=== PATIENT | female | born 1945 | race Caucasian/White ===

== ENCOUNTER 2019-07-11 13:55 | Inpatient (IN) | payer OTHER ==
[~2019-07-11] VITALS: Ht 149.9 cm; Wt 51.7 kg
[2019-07-11 14:00] VITALS: BP 140/62
--- NOTE | 2019-07-11 14:04 | NUR ---
PTS SON LEE RAMIREZNANDEZ
--- NOTE | 2019-07-11 14:07 | NUR ---
pt ambulated to bed 11, steady gait
--- NOTE | 2019-07-11 14:08 | NUR ---
pt placed on pulse ox and 3 lead ecg
--- NOTE | 2019-07-11 14:12 | NUR ---
pt unable to provide urine at this time.
--- NOTE | 2019-07-11 14:18 | NUR ---
Dr. Ball evaluating pt at bedside.
--- NOTE | 2019-07-11 14:19 | NUR ---
Labs drawn bedside via LAC #[id number]
--- NOTE | 2019-07-11 14:20 | NUR ---
74/F WENT TO LAB YESTERDAY, AND WAS EMAILED TODAY WITH RESULTS ABNORMAL HGB- 3.1, IRON-11. PT HAS BEEN FEELING GENERALIZED WEAKNESS / FATIGUE X 1 MONTH. NO DIZZINESS. STATES MILD SOB. BLE EDEMA X 1 MONTH. AOX4. AMB W/ SLOW STEADY GAIT. PMH- DENIES NKDA
[2019-07-11] MEDS ORDERED: NACL 0.9% 500 ML IV SCH (14:23)
[2019-07-11] MEDS ORDERED: FAMOTIDINE 20 MG/2 ML VIAL IVP ONE (14:25)
[2019-07-11] MEDS ORDERED: PANTOPRAZOLE 40 MG INJ VIAL IVP ONE (14:25)
[2019-07-11] MEDS ORDERED: ONDANSETRON 4 MG/2 ML VIAL IVP ONE (14:25)
--- NOTE | 2019-07-11 14:26 | NUR ---
PER SON, PT DOES NOT HAVE ANY HOME MEDS.
--- NOTE | 2019-07-11 14:44 | NUR ---
BLOOD DRAW WALKED TO LAB BY JAMIE GAINES
--- NOTE | 2019-07-11 14:44 | NUR ---
Johnny gonzalez in [facility] - 07/11/19 at 1446 by [facility] BLOOD DRAW WALKED TO LAB BY JAMIE GAINES
--- NOTE | 2019-07-11 14:46 | NUR ---
REPORT TO JAMIE DAS
--- NOTE | 2019-07-11 14:46 | NUR ---
Received report from JAMIE Baptiste for continuation of care.
--- NOTE | 2019-07-11 15:06 | NUR ---
XRAY at Bedside.
--- NOTE | 2019-07-11 15:08 | NUR ---
Pt O2 Sat 92% , pt put on NC 2L for comfort.
[2019-07-11 15:17] LABS: BASOPHILS # (AUTO) 0.1 K/uL (0.00-0.22); BASOPHILS % (AUTO) 1.8 % (0.0-2.0); EOSINOPHILS % (AUTO) 0.6 % (0.0-4.0); LYMPHOCYTES # (AUTO) 1.6 K/uL (2.5-16.5); LYMPHOCYTES % (AUTO) 25.6 % (20.5-51.1); MEAN CORPUSCULAR HEMOGLOBIN 16 pg (27-31); MEAN CORPUSCULAR HGB CONC 27 g/dL (33-37); MEAN CORPUSCULAR VOLUME 57.7 fL (80-94); MONOCYTES # (AUTO) 0.7 K/uL (0.8-1.0); MONOCYTES % (AUTO) 11.7 % (1.7-9.3); NEUTROPHILS # (AUTO) 3.7 K/uL (1.8-7.7); NEUTROPHILS % (AUTO) 60.3 % (42.2-75.2); PLATELET COUNT (AUTO) 312 K/uL (140-450); RED BLOOD CELL COUNT(AUTO) 2.01 MIL/uL (4.20-5.40); RED CELL DISTRIBUTION WIDTH 22.3 % (11.6-13.7); WHITE BLOOD COUNT (AUTO) 6.1 K/uL (4.8-10.8)
[2019-07-11 15:22] LABS: HEMATOCRIT 11.6 % (36-48); HEMOGLOBIN 3.2 g/dL (12.0-16.0)
[2019-07-11 15:38] LABS: ALBUMIN 3.9 g/dL (3.4-5.0); ANION GAP 17.6 (8-16); ASPARTATE AMINOTRANSFERASE 13 U/L (15-37); CARBON DIOXIDE 20.2 mmol/L (21-32); CHLORIDE 106 mmol/L (98-107); CREATININE 1.2 mg/dL (0.6-1.3); GLUCOSE 115 mg/dL (74-106); POTASSIUM 3.8 mmol/L (3.5-5.1); SODIUM SERUM 140 mmol/L (136-145); TOTAL BILIRUBIN 0.7 mg/dL (0.0-1.0); UREA NITROGEN, BLOOD 19 mg/dL (7-18)
--- NOTE | 2019-07-11 15:38 | NUR ---
PT AMBULATED TO BATHROOM WITH ASSISTANCE, STEADY GAIT.
[2019-07-11 15:39] LABS: PROTHROMBIN TIME 11.9 secs (10.8-13.4)
--- NOTE | 2019-07-11 15:40 | NUR ---
PT AMBULATED TO RESTROOM WITH ASSISTANCE OF MYSELF AND JAMIE BARRERA. PT BECAME VERY TIRED AND SOB AFTER WALKING FROM BED 11 TO RESTROOM ACROSS THE TIERNEY.
[2019-07-11 16:40] LABS: BILIRUBIN,URINE NEGATIVE (NEGATIVE); BLOOD, URINE NEGATIVE (NEGATIVE); COLOR,URINE ORANGE (YELLOW); LEUKOCYTE ESTERASE ,URINE 1+ (NEGATIVE); NITRITE, URINE NEGATIVE (NEGATIVE); PH,URINE 5.5 (5.0-9.0); UGLUCOSE NEGATIVE (NEGATIVE)
[2019-07-11] MEDS ORDERED: NACL 0.9% 1,000 ML IV SCH (16:44)
[2019-07-11] MEDS ORDERED: HYDROcodone/APAP 7.5/325 MG 1 TAB PO PRN (16:45)
[2019-07-11] MEDS ORDERED: DOCUSATE SODIUM 100 MG GELCAP PO PRN (16:45)
[2019-07-11] MEDS ORDERED: ONDANSETRON 4 MG/2 ML VIAL IM/IVP PRN (16:45)
[2019-07-11] MEDS ORDERED: ACETAMINOPHEN 325 MG TAB PO PRN (16:45)
[2019-07-11] MEDS ORDERED: MORPHINE SULFATE 2 MG/ML SYR IVP PRN (16:45)
[2019-07-11 16:51] LABS: APPEARANCE,URINE HAZY (CLEAR)
[2019-07-11 17:08] LABS: RBC,URINE NONE SEEN /HPF (0-5)
--- NOTE | 2019-07-11 17:30 | NUR ---
PT 02 SAT DECREASED TO 92% , PUT PT TO 4L NC TO ELEVATE O2 SAT.
[2019-07-11 18:10] LABS: PHOSPHORUS 3.9 mg/dL (2.5-4.9); THYROID STIMULATING HORMONE 1.56 uIU/mL (0.34-3.74)
[2019-07-11 18:16] LABS: BARBITURATE, URINE NEGATIVE ng/ml (NEG <=200); BENZODIAZEPINE, URINE NEGATIVE ng/mL (NEG <=200); CANNABINOID, URINE NEGATIVE ng/mL (NEG <=50); COCAINE, URINE NEGATIVE ng/mL (NEG <=300); OPIATE, URINE NEGATIVE ng/mL (NEG <=2000); PHENCYCLIDINE SCREEN,URINE NEGATIVE ng/mL (NEG <=25)
[2019-07-11 18:18] LABS: MAGNESIUM 2.7 mg/dL (1.8-2.4); URIC ACID 5.9 mg/dL (2.6-7.2)
[2019-07-11] MEDS ORDERED: BOWEL EVACUANT DRINK 4,000 ML PDS PO SCH (19:00)
--- NOTE | 2019-07-11 19:00 | NUR ---
RECEIVED FROM ED PATIENT WHEELED VIA GURNEY, PT VERY WEAK, ABLE TO WALK BUT W/ 2 MAX ASSIST. AAO X 4, INDONESIAN SPEAKING ONLY; W/ IV ON THE LEFT AC G 20, PATENT AND INTACT; PLACED ON LOW BED. ORIENTED TO UNIT; MRSA SWAB DONE.CALL LIGHT W/IN EASY REACH.WILL CONTINUE TO MONITOR
--- NOTE | 2019-07-11 19:09 | NUR ---
Patient will be admitted to care of Dr. Hall. Admited to Telemetry. Will go to room 107B. Belongings list completed. Report to JAMIE Saunders.
[2019-07-11] MEDS ORDERED: SODIUM FERRIC GLUCONATE 125 MG in NACL 0.9% 100 ML IV SCH (20:00)
--- NOTE | 2019-07-11 20:15 | NUR ---
INFORMED JESSENIA INVESTIGATOR WELFARE, ON THE LACKING Y TUBING SHE SAID SHE WILL BRING IT FOR BLOOD
[2019-07-11] MEDS: DEXT 5% /NACL 0.9% 1,000 ML IV SCH (20:22)
--- NOTE | 2019-07-11 20:22 | NUR ---
STARTED THE IVF INFUSED IT FOR TWO HOURS , LEFT 800 ML, STOPPED BECAUSE I HAD TO START THE BLOOD AT 2210
--- NOTE | 2019-07-11 20:23 | NUR ---
INFORMED DR. THORNE THAT PT HAS GOLYTELY AT 1900 ONCE, AND THE FERLICCIT IV, SAID TO GIVE IT AFTER THE BLOOD TRANSFUSION( AFTER THE 2 UNITS)
--- NOTE | 2019-07-11 20:45 | NUR ---
PT'S USD LE ARTERIAL AND VENOUS ONGOING
--- NOTE | 2019-07-11 21:48 | NUR ---
BLOOD TRANSFUSION SIGNED USING [facility] VOTATOR MACHINE OPERATOR [id number] JUNE
--- NOTE | 2019-07-11 22:10 | NUR ---
STARTED BLOOD TRANSFUSION . VERIFIED W/ NURSE, ARTI, BLOOD AND ID BAND. WILL MONITOR FOR SIGNS AND SYMPTOMS OF ADVERSE REACTIONS
--- NOTE | 2019-07-11 22:25 | NUR ---
1ST 15 MINS NO BLOOD TRANSFUSION REACTIONS, VITAL SIGNS ARE: 123/52; 80 HR; 16; 97.7; 98% O2; 0/10 PAIN
--- NOTE | 2019-07-11 22:49 | NUR ---
VERIFIED W/ DR. THORNE HOW MANY UNITS OF PRBC AM I GIVING? BECAUSE THERE'S NOTHING IN THE ORDER THAT SAYS HOW MANY RBC. HE SAID THEY ORDERED, 2 UNITS. WILL GIVE 2 UNITS
[2019-07-12] VITALS: BP 118/56
[2019-07-12 04:00] VITALS: BP 152/71
--- NOTE | 2019-07-12 04:05 | NUR ---
PT HAS FINISHED THE 2ND UNIT OF PRBC; AND PT HAS JUST RESTED. INFORMED DR. THORNE, THAT WHEN SHE WAKES UP WILL START THE GOLYTELY
[2019-07-12] MEDS: DEXT 5% /NACL 0.9% 1,000 ML IV SCH ×2 (04:10→04:50)
[2019-07-12] MEDS ORDERED: BOWEL EVACUANT DRINK 4,000 ML PDS ONE (05:03)
[2019-07-12] MEDS ORDERED: SODIUM FERRIC GLUCONATE 12.5 MG/ML AMP IV ONE (05:03)
--- NOTE | 2019-07-12 05:08 | NUR ---
2 AMPULES OF 62. 5 ML MG EACH 9TOTAL OF 125 MG) WAS MIXED W/ NS AT 100 ML . AND STARTED
[2019-07-12 06:07] LABS: FOLIC ACID 17.6 ng/mL (>3.0)
[2019-07-12 07:07] LABS: FOLIC ACID 17.6 ng/mL (>3.0)
[2019-07-12 07:09] LABS: BASOPHILS # (AUTO) 0.1 K/uL (0.00-0.22); BASOPHILS % (AUTO) 2.7 % (0.0-2.0); EOSINOPHILS % (AUTO) 1.2 % (0.0-4.0); LYMPHOCYTES % (AUTO) 26.7 % (20.5-51.1); MEAN CORPUSCULAR HEMOGLOBIN 21 pg (27-31); MEAN CORPUSCULAR HGB CONC 30 g/dL (33-37); MONOCYTES # (AUTO) 0.4 K/uL (0.8-1.0); MONOCYTES % (AUTO) 10.8 % (1.7-9.3); NEUTROPHILS # (AUTO) 2.2 K/uL (1.8-7.7); NEUTROPHILS % (AUTO) 58.6 % (42.2-75.2); PLATELET COUNT (AUTO) 215 K/uL (140-450); RED BLOOD CELL COUNT(AUTO) 2.76 MIL/uL (4.20-5.40); RED CELL DISTRIBUTION WIDTH 29.8 % (11.6-13.7); WHITE BLOOD COUNT (AUTO) 3.7 K/uL (4.8-10.8)
[2019-07-12 07:11] LABS: ANION GAP 15.8 (8-16); CHLORIDE 111 mmol/L (98-107); GLUCOSE 92 mg/dL (74-106); POTASSIUM 4.8 mmol/L (3.5-5.1); SODIUM SERUM 144 mmol/L (136-145); UREA NITROGEN, BLOOD 15 mg/dL (7-18)
[2019-07-12 07:13] LABS: HEMATOCRIT 19.1 % (36-48); HEMOGLOBIN 5.8 g/dL (12.0-16.0)
[2019-07-12 07:18] LABS: MAGNESIUM 2.4 mg/dL (1.8-2.4); PHOSPHORUS 3.7 mg/dL (2.5-4.9)
[2019-07-12 07:40] LABS: CHOL/HDL RATIO 2.4 (1-4.5)
--- NOTE | 2019-07-12 07:47 | NUR ---
RECEIVED REPORT FROM CALIBRATION ENGINEER RN FOR CONTINUITY OF CARE. PT IS AAOX3, COOPERATIVE AND ABLE TO MAKE NEEDS KNOW. PT IS SAMI SPEAKING. I AM ABLE TO COMMUNICATE WELL WITH HER. PT IS ON 2L O2 VIA NC. SATING WELL AT 96%. PT SKIN IS INTACT. PT AMBULATORY BUT WITH ASSIST DUE TO WEAKNESS FROM SEVERE ANEMIA. INSTRUCTED PT TO USE CALL LIGHT IF SHE NEEDS TO GET OUT OF BED. PT VERBALIZED UNDERSTANDING. PT HAS L AC 20G INFUSING D5NS @ 100ML/HR. IV INTACT AND PATENT. DISCUSSED POC WITH PT AND PT VERBALIZED UNDERSTANDING. SAFETY MEASURES IN PLACE. BED IN LOW POSITION, CALL LIGHT WITHIN REACH. WILL ROUND FREQUENTLY ON PT THROUGHOUT THE SHIFT.
[2019-07-12 08:00] VITALS: BP 156/73
[2019-07-12] MEDS: FUROSEMIDE 40 MG/4 ML VIAL IVP SCH (08:51)
[2019-07-12] MEDS: PANTOPRAZOLE 40 MG INJ VIAL IVP SCH (08:51)
--- NOTE | 2019-07-12 09:05 | NUR ---
ADMINISTERED MORNING MEDS. PT TOLERATED WELL. ALL NEEDS MET. WILL CONTINUE TO ROUND FREQUENTLY ON PT.
--- NOTE | 2019-07-12 09:08 | NUR ---
PATIENT HAS BEEN SCREENED AND CATEGORIZED MODERATE NUTRITION RISK. PATIENT WILL BE SEEN WITHIN 3-5 DAYS OF ADMISSION. 07/14/19 07/16/[address]
--- NOTE | 2019-07-12 10:19 | NUR ---
PBX INSTALLER NOTE: Basic Screen: Yes High Risk DC Screen [place]: LEE LYNN Home Relationship: SON Pre-Admission Living Arrangements: Lives with Other Prior ADL Independent Current Home Health Name/Tel: N/A Current DME/02 Name/Tel: N/A Current Hospice Name/Tel: N/A Current Dialysis Name/Tel: N/A Healthcare Decision Maker: Patient Advance Directive No Physician Orders for Life Sustaining Treatment Form No Patient/Family Have Educational Needs No Discipline: Case Mgt/Social Svcs Tentative Discharge Plan/Destination: No Needs Identified Will require assistance post discharge: No Referred to Art Department Head: No Tentative Discharge Plan Summary: PATIENT IS A 74-YEAR-OLD FEMALE ADMITTED FOR SEVERE ANEMIA. PATIENT HAS NO PERTINENT PMHX. PATIENT WAS ADMITTED FROM HOME WHERE HE LIVES WITH HER GRANDSON. PATIENT CONTACTED PATIENT'S SON LEE LYNN. PER LEE, PATIENT IS INDEPENDENT WITH ALL ADLS AND REPORTS NO HISTORY OF MENTAL HEALTH OR SUBSTANCE ABUSE. TENTATIVE DISCHARGE PLAN IS FOR PATIENT TO RETURN HOME. NO FURTHER NEEDS IDENTIFIED. Signature: JIMBO PRESTON Date: July 12, 2019 Time: 10:16
--- NOTE | 2019-07-12 11:34 | NUR ---
PT RESTING IN BED. ALL NEEDS MET. WILL CONTINUE TO ROUND ON PT.
--- NOTE | 2019-07-12 13:55 | NUR ---
PT RESTING IN BED. TRANSFUSING PACKED RBC'S TO PT NOW FOR SEVERE ANEMIA. PT TOLERATING WELL. WILL MONITOR PT CLOSELY.
[2019-07-12] MEDS ORDERED: FUROSEMIDE 20 MG/2 ML VIAL IVP SCH (15:00)
--- NOTE | 2019-07-12 15:38 | NUR ---
PT WATCHING TV IN BED. ALL NEEDS MET.
[2019-07-12 16:00] VITALS: BP 156/58
[2019-07-12] MEDS ORDERED: SODIUM FERRIC GLUCONATE 125 MG in NACL 0.9% 100 ML IV SCH (17:00)
--- NOTE | 2019-07-12 17:30 | NUR ---
PT RESTING IN BED. ALL NEEDS MET. WILL CONTINUE TO ROUND ON PT.
--- NOTE | 2019-07-12 18:05 | NUR ---
TRIED CALLING TO CLARIFY FERRLECIT ORDER FOR PHARMACY, UNABLE TO PAGE . NOTIFIED RESIDENT . PER , HE WILL FOLLOW-UP WITH AND THEN LET ME KNOW WHAT HE SAYS. WILL NOTIFY PHARMACY ONCE ORDER IS CLARIFIED.
[2019-07-12] MEDS ORDERED: MAGNESIUM CITRATE 300 ML BTL PO SCH (19:00)
--- NOTE | 2019-07-12 19:22 | NUR ---
ENDORSED PT TO SEAM STEAMER FOR CONTINUITY OF CARE. NOTIFIED SEAM STEAMER RN JOELLEN THAT PT CONSENT FORMS NEED TO BE SIGNED. SHE CAN CALL SON LEE TO GET TELEPHONE CONSENT SINCE PT RATHER HAVE SON SIGN PAPERWORK. ALSO TOLD HER TO FOLLOW UP WITH RESIDENT ABOUT FERRLECIT ORDER CLARIFICATION. PT IN STABLE CONDITION AT THIS TIME.
--- NOTE | 2019-07-12 19:25 | NUR ---
RECEIVED BEDSIDE REPORT FROM AM SHIFT RN FOR PT'S CONTINUITY OF CARE. PT IS PRIMARILY DJIBOUTIAN SPEAKING, AAOX4, AMBULATORY WITH ASSIST, PT IS MED/SURG, IS ON ROOM AIR, HAS RIGHT FOREARM 20G INFUSING WITH NS AT 10ML/HR, DENIES ANY PAIN AT THIS TIME, CURRENTLY ON BOWEL PREP, PT HAS JUST GONE TO THE RESTROOM AND STATES THAT STOOL IS STILL NOT CLEAR IN COLOR. SAFETY MEASURES IN PLACE AND CALL LIGHT IS WITHIN REACH. WILL MONITOR PT THROUGHOUT SHIFT.
--- NOTE | 2019-07-12 20:00 | NUR ---
OBTAINED CONSENT FROM SON, LEE LYNN FOR PT'S EGD/COLONOSCOPY WITH DR. CUMMINGS FOR 07/12. WITNESSED WITH FRENCH WEAVER, CAPO. NOTIFIED BOTH THE RESIDENT AND DR. CUMMINGS.
--- NOTE | 2019-07-12 21:45 | NUR ---
PT WENT TO THE RESTROOM WITH STEADY GAIT, FINISHED BOWEL PREP. PT DENIES ANY PAIN, DISCOMFORT, OR DIZZINESS. INSTRUCTED PT TO CALL FOR ASSISTANCE WITH GOING TO THE RESTROOM OR WHEN FELT DIZZY. PT VERBALIZED UNDERSTANDING. WILL CONTINUE TO MONITOR PT.
--- NOTE | 2019-07-12 23:00 | NUR ---
FOUND PT USING THE RESTROOM, ASSESSED PT FOR ANY DIZZINESS OR DISCOMFORT, PT DENIES ANY. REMINDED PT TO USE THE CALL LIGHT WHEN NEEDED. PT VERBALIZED UNDERSTANDING. WILL CONTINUE TO MONITOR PT.
[2019-07-13] VITALS: BP 145/55
--- NOTE | 2019-07-13 01:00 | NUR ---
PT USED THE RESTROOM AGAIN, REINFORCED TO PT THE USE OF CALL LIGHT WITH THE HELP OF OUTSOLE TACKER WHO SPEAKS THAI, PT VERBALIZED UNDERSTANDING, DENIES ANY DIZZINESS OR WEAKNESS. PT'S BOWEL IS CLEAR IN APPEARANCE. WILL CONTINUE TO MONITOR PT.
--- NOTE | 2019-07-13 03:29 | NUR ---
PT ASLEEP WITH NO SIGNS OF DISTRESS OR DISCOMFORT. WILL CONTINUE TO MONITOR PT.
--- NOTE | 2019-07-13 04:40 | NUR ---
ADMINISTERED SCHEDULED IV FERRLECIT ORDERED. PT ASLEEP WITH NO SIGNS OF DISTRESS. WILL CONTINUE TO MONITOR PT.
[2019-07-13] MEDS ORDERED: SODIUM FERRIC GLUCONATE 125 MG in NACL 0.9% 100 ML IV SCH (05:00)
--- NOTE | 2019-07-13 06:26 | NUR ---
PT AWAKE, LYING IN BED, STATES THAT SHE IS TIRED DT FREQUENT BOWEL MOVEMENT, DENIES ANY PAIN AT THIS TIME. WILL ENDORSE TO AM SHIFT RN FOR PT'S CONTINUITY OF CARE.
[2019-07-13 06:37] LABS: BASOPHILS # (AUTO) 0.1 K/uL (0.00-0.22); BASOPHILS % (AUTO) 1.4 % (0.0-2.0); EOSINOPHILS % (AUTO) 0.4 % (0.0-4.0); HEMATOCRIT 26.3 % (36-48); HEMOGLOBIN 8.2 g/dL (12.0-16.0); LYMPHOCYTES % (AUTO) 13.7 % (20.5-51.1); MEAN CORPUSCULAR HEMOGLOBIN 23 pg (27-31); MEAN CORPUSCULAR HGB CONC 31 g/dL (33-37); MEAN CORPUSCULAR VOLUME 73.3 fL (80-94); MONOCYTES # (AUTO) 0.6 K/uL (0.8-1.0); MONOCYTES % (AUTO) 8.8 % (1.7-9.3); NEUTROPHILS # (AUTO) 5.4 K/uL (1.8-7.7); NEUTROPHILS % (AUTO) 75.7 % (42.2-75.2); PLATELET COUNT (AUTO) 205 K/uL (140-450); WHITE BLOOD COUNT (AUTO) 7.1 K/uL (4.8-10.8)
--- NOTE | 2019-07-13 07:05 | NUR ---
RECEIVED REPORT FROM NIGHT NURSE, PT IS AAOX4 ON ROOM AIR, SKIN INTACT AND IV SITES INTACT ON THE RIGHT FA.SAFETY MEASURES IN PLACE CALL LIGHT WITHIN REACH. WILL CONTINUE TO MONITOR.
[2019-07-13 07:10] LABS: MAGNESIUM 2.4 mg/dL (1.8-2.4); PHOSPHORUS 4.1 mg/dL (2.5-4.9)
[2019-07-13 08:00] VITALS: BP 137/60
--- NOTE | 2019-07-13 08:05 | NUR ---
PT WAS OUT FOR EGD AND COLONOSCOPY PROCEDURE AT THIS TIME. PT IS STABLE.
[2019-07-13] MEDS ORDERED: MIDAZOLAM 2 MG/2 ML VIAL ONE (08:08)
[2019-07-13] MEDS ORDERED: fentaNYL 0.05 MG/ML VIAL ONE (08:08)
--- NOTE | 2019-07-13 09:25 | NUR ---
PT IS BACK IN HER ROOM PT HAD COLONOSCOPY AVM CAUTERY, GASTRITIS, AVM IN RIGHT COLON AND DIVERTICULOSIS. PT IS STABLE, SAFETY MEASURES IN PLACE, CALL LIGHT WITHIN REACH. WILL CONTINUE TO MONITOR.
[2019-07-13] MEDS ORDERED: MIDAZOLAM 2 MG/2 ML VIAL IVP ONE (09:45)
[2019-07-13] MEDS ORDERED: fentaNYL 0.05 MG/ML VIAL IVP ONE (09:45)
[2019-07-13] MEDS: FUROSEMIDE 40 MG/4 ML VIAL IVP SCH (10:07)
[2019-07-13] MEDS: PANTOPRAZOLE 40 MG INJ VIAL IVP SCH (10:07)
[2019-07-13 10:19] LABS: CARBON DIOXIDE 26.1 mmol/L (21-32); CHLORIDE 114 mmol/L (98-107); CREATININE 0.9 mg/dL (0.6-1.3); GLUCOSE 87 mg/dL (74-106); SODIUM SERUM 147 mmol/L (136-145); UREA NITROGEN, BLOOD 8 mg/dL (7-18)
[2019-07-13 10:27] LABS: ANION GAP 9.7 (8-16); POTASSIUM 2.8 mmol/L (3.5-5.1)
[2019-07-13] MEDS ORDERED: POTASSIUM CHLORIDE 10 MEQ TABER PO SCH (10:40)
[2019-07-13] MEDS ORDERED: FERR-1 PO (11:54)
[2019-07-13] MEDS ORDERED: OMEP40EC24 PO (11:54)
[2019-07-13] MEDS ORDERED: FURO-572 PO (11:54)
[2019-07-13] MEDS ORDERED: LACT10SO86 PO (11:54)
[2019-07-13] MEDS ORDERED: POTASSIUM CHLORIDE 40 MEQ, LIDOCAINE MPF 1% 25 MG in NACL 0.9% 250 ML IV SCH (12:00)
--- NOTE | 2019-07-13 15:10 | NUR ---
DISCHARGE INSTRUCTION PROVIDED TO PATIENT AT HER BEDSIDE WITHE THE TIER TRUCK DRIVER BART ID # [id number].EDUCATED PT TO FOLLOW UP WITH THE MD AFTER DISCHARGE.. MEDICATION REGIMENS, SIDE EFFECTS AND TO SEEK MEDICAL HELP IN CASE OF MEDICAL EMERGENCY. ANSWERED ALL THE PT QUESTIONS AND VERBALIZES UNDERSTANDING. REMOVED ID BAND, IV INTACT AND COMPLETE. NO BLEEDING ON THE IV. PT CHANGED TO HOME CLOTHES. DISCHARGED PACKET PROVIDED TO THE PATIENT PT TOOK ALL HER BELONGINGS AND MANAGER STRATEGIC DEVELOPMENT ESCORTED PT TO THE FRONT LOBBY. PT IS DC TO HOME. PT IS STABLE.
[2019-07-14] MEDS ORDERED: SODIUM FERRIC GLUCONATE 125 MG in NACL 0.9% 100 ML IV SCH (05:00)
== END 2019-07-13 15:10 | disposition home or self-care (01) | DRG 377 ==
LOC: MED 13:55 → MTU 16:44
PROVIDERS: ADMIT General Practice; ATTEND General Practice
PROC: 0DB68ZX Excision of Stomach, Via Natural or Artificial Opening Endoscopic, Diagnostic (ICD-10-PCS; principal; 2019-07-13 08:00)
PROC: 0W3P8ZZ Control Bleeding in Gastrointestinal Tract, Via Natural or Artificial Opening Endoscopic (ICD-10-PCS; 2019-07-13 08:00)
DX: K29.01 Acute gastritis with bleeding (principal); I50.43 Acute on chronic combined systolic (congestive) and diastolic (congestive) heart failure; N39.0 Urinary tract infection, site not specified; D64.9 Anemia, unspecified; K55.20 Angiodysplasia of colon without hemorrhage; K57.90 Diverticulosis of intestine, part unspecified, without perforation or abscess without bleeding; K59.00 Constipation, unspecified; D50.9 Iron deficiency anemia, unspecified; T39.395A Adverse effect of other nonsteroidal anti-inflammatory drugs [NSAID], initial encounter; Y92.89 Other specified places as the place of occurrence of the external cause; Z80.9 Family history of malignant neoplasm, unspecified; Z91.19 Patient's noncompliance with other medical treatment and regimen
CPT/HCPCS: 36415; 36430; 71045; 80048; 80053; 80305; 81001; 82607; 82728; 82746; 83036; 83540; 83735; 83880; 84100; 84443; 84484; 84550; 85025; 85045; 85610; 85730; 86677; 86886; 86900; 86901; 86920; 87081; 87086; 93005; 93925; 93970; 96361; 96374; 96375; 97110; 97116; 97161-GP; 97530; 99285; C9113; J0696; J1940; J2001; J2250; J2405; J2916; J3010; J3480; J3490; J7030; J7042; J7060; P9016; Q0092

== ENCOUNTER 2020-04-29 03:30 | Emergency (ER) | payer MEDICAID, OTHER ==
[~2020-04-29] VITALS: Ht 152.4 cm; Wt 54.1 kg
[~2020-04-29 03:30] MED LIST: FERR-1 PO; FURO-572 PO; LACT10SO86 PO; OMEP40EC24 PO
[2020-04-29 03:40] VITALS: BP 192/105
[2020-04-29] MEDS ORDERED: hydrALAZINE 20 MG/ML VIAL IVP ONE (04:05)
[2020-04-29] MEDS ORDERED: ENALAPRILAT 2.5 MG/2 ML VIAL IVP ONE (04:05)
[2020-04-29 04:41] LABS: BASOPHILS # (AUTO) 0.2 K/uL (0.00-0.22); BASOPHILS % (AUTO) 1.9 % (0.0-2.0); EOSINOPHILS # (AUTO) 0.1 K/uL (0-0.4); HEMATOCRIT 39.6 % (36-48); LYMPHOCYTES % (AUTO) 11.3 % (20.5-51.1); MEAN CORPUSCULAR HEMOGLOBIN 29 pg (27-31); MEAN CORPUSCULAR HGB CONC 33 g/dL (33-37); MEAN CORPUSCULAR VOLUME 87.8 fL (80-94); MONOCYTES # (AUTO) 0.5 K/uL (0.8-1.0); MONOCYTES % (AUTO) 5.5 % (1.7-9.3); NEUTROPHILS # (AUTO) 7.2 K/uL (1.8-7.7); NEUTROPHILS % (AUTO) 80.3 % (42.2-75.2); PLATELET COUNT (AUTO) 276 K/uL (140-450); RED BLOOD CELL COUNT(AUTO) 4.51 MIL/uL (4.20-5.40); RED CELL DISTRIBUTION WIDTH 13.6 % (11.6-13.7); WHITE BLOOD COUNT (AUTO) 8.9 K/uL (4.8-10.8)
[2020-04-29 05:01] LABS: ANION GAP 12.2 (8-16); ASPARTATE AMINOTRANSFERASE 18 U/L (15-37); CARBON DIOXIDE 28.4 mmol/L (21-32); CHLORIDE 103 mmol/L (98-107); CREATININE 0.6 mg/dL (0.6-1.3); GLUCOSE 113 mg/dL (74-106); POTASSIUM 3.6 mmol/L (3.5-5.1); SODIUM SERUM 140 mmol/L (136-145); TOTAL BILIRUBIN 0.5 mg/dL (0.0-1.0); UREA NITROGEN, BLOOD 13 mg/dL (7-18)
[2020-04-29 05:03] LABS: CHOL/HDL RATIO 2.6 (1-4.5); CREATINE KINASE MB 1.8 ng/mL (0-3.6)
[2020-04-29] MEDS ORDERED: POTASSIUM CHLORIDE 10 MEQ TABER PO PRN (05:25)
[2020-04-29] MEDS ORDERED: MAGNESIUM OXIDE 400 MG TAB PO PRN (05:25)
[2020-04-29] MEDS ORDERED: ONDANSETRON 4 MG/2 ML VIAL IVP PRN (05:25)
[2020-04-29] MEDS ORDERED: ACETAMINOPHEN 325 MG TAB PO PRN (05:25)
[2020-04-29] MEDS ORDERED: MAG SULF 2000 MG/WATER PREMIX 50 ML IV PRN (05:25)
[2020-04-29] MEDS ORDERED: KCL 20 MEQ/WATER INJ PREMIX 200 ML IV PRN (05:25)
[2020-04-29 06:18] VITALS: BP 139/56
[2020-04-29] MEDS ORDERED: METOPROLOL 25 MG TAB PO SCH (09:00)
[2020-04-29] MEDS ORDERED: lisinopriL 20 MG TAB PO SCH (09:00)
[2020-04-29] MEDS ORDERED: ENOXAPARIN 40 MG/0.4 ML SYR SUBQ SCH (09:00)
== END 2020-04-29 06:18 | disposition designated cancer center or children's hospital (05) ==
LOC: MED 03:30 → MTU 05:36 → UNDOADMIN 05:36 → MED 06:18
DX: I10 Essential (primary) hypertension (principal); Z20.822 Contact with and (suspected) exposure to COVID-19; I63.9 Cerebral infarction, unspecified; Z79.899 Other long term (current) drug therapy; Z98.890 Other specified postprocedural states
CPT/HCPCS: 36415; 71045; 80053; 80061; 82550; 82553; 83880; 84484; 85025; 85379; 87426; 93005; 96374; 96375; 99285; J0360; J3490